=== PATIENT | male | born 1980 | race Caucasian/White ===

== ENCOUNTER → 2018-06-20 | Day surgery (SDC) | payer MEDICAID ==
[~2018-06-20] VITALS: Ht 165.1 cm; Wt 110.2 kg
[~2018-06-20] MED LIST: ALBU4TAB6 INH; ARIP15TA7 PO; BISA-81 PO; BUPR-43 PO; FENTANYL CITRATE/PF 50MCG/ML 2ML VIAL IV PRN; FENTANYL CITRATE/PF 50MCG/ML 5ML VIAL ONE; IOPAMIDOL 20 ML VIAL IT ONE; LACTATED RINGERS 1,000 ML IV SCH; MIDAZOLAM HCL 2 MG/2 ML VIAL ONE; PROPOFOL 200MG/20ML VIAL IV ONE
== END | disposition home or self-care (01) ==
LOC: OR 05:25
PROVIDERS: ATTEND Urology
DX: R10.9 Unspecified abdominal pain (principal); F32.9 Major depressive disorder, single episode, unspecified; J45.909 Unspecified asthma, uncomplicated; Z79.899 Other long term (current) drug therapy; Z98.890 Other specified postprocedural states
CPT/HCPCS: 52332; 52351; 74018; C1769; C2617; J2250; J3010; J7120; J2704; Q9966